=== PATIENT | female | born 1995 | race Caucasian/White ===

== ENCOUNTER → 2022-05-05 | Outpatient (REF) | LOC: M LABSMTC 12:18 | PROVIDERS: ATTEND Family Medicine | DX: Z11.52 Encounter for screening for COVID-19 (principal) ==

== ENCOUNTER → 2022-09-10 | Outpatient (REF) | LOC: M EMP 09:16 | PROVIDERS: ATTEND Family Medicine | DX: Z11.52 Encounter for screening for COVID-19 (principal) ==

== ENCOUNTER → 2022-09-20 | Outpatient (CLI) | payer OTHER | LOC: M WHC 13:29 | PROVIDERS: ATTEND Registered Nurse | DX: Z34.90 Encounter for supervision of normal pregnancy, unspecified, unspecified trimester (principal) ==

== ENCOUNTER 2023-01-24 09:37 | Inpatient (IN) | payer OTHER ==
[2023-01-24] VITALS (18 sets, daily range): BP systolic 113–170; BP diastolic 65–97
[~2023-01-24] VITALS: Ht 157.5 cm; Wt 66.3 kg
[2023-01-24] MEDS ORDERED: OXYTOCIN INJ 10UNITS/ML 1ML VIAL IM PRN (10:35)
[2023-01-24] MEDS ORDERED: METHYLERGONOVINE MALEATE 0.2MG/ML 1ML VIAL IM PRN (10:35)
[2023-01-24] MEDS ORDERED: LIDOCAINE 1% MDV 20ML VIAL INFIL PRN (10:35)
[2023-01-24] MEDS ORDERED: OXYTOCIN DRIP 30 UNITS in IV 1 EA IV PRN ×6 (10:35)
[2023-01-24] MEDS ORDERED: CARBOPROST TROMETHAMINE 250 MCG/ML AMP IM PRN (10:35)
[2023-01-24] MEDS ORDERED: TRANEXAMIC ACID INJection 1,000 MG in NS 100 ML IV PRN (10:35)
[2023-01-24] MEDS ORDERED: LACTATED RINGER'S 1000 ML IV STA (10:35)
[2023-01-24] MEDS ORDERED: LR 1,000 ML IV SCH ×2 (10:35→22:05)
[2023-01-24] MEDS ORDERED: PRENTAB9 PO (11:16)
[2023-01-24 11:19] LABS: BASO # 0.1 10^3/uL (0.0-0.2); BASO % 0.5 % (0.0-1.0); EOS # 0.1 10^3/uL (0.0-0.5); HEMATOCRIT 33.6 % (36.0-47.0); LYMPH # 1.5 10^3/uL (1.5-5.0); MEAN CORPUSCULAR HEMOGLOBIN 27.2 pg (27.0-33.0); MEAN CORPUSCULAR HGB CONC 32.7 g/dl (32.0-36.5); MEAN CORPUSCULAR VOLUME 83.2 fl (80.0-96.0); MONO # 0.8 10^3/uL (0.0-0.8); MONO % 6.1 % (2.0-8.0); NEUTROPHILS # 10.9 10^3/uL (1.5-8.5); NEUTROPHILS % 79.9 % (36.0-66.0); PLATELET COUNT, AUTOMATED 157 10^3/uL (150-450); RED BLOOD COUNT 4.04 10^6/uL (4.00-5.40); WHITE BLOOD COUNT 13.7 10^3/uL (4.0-10.0)
[2023-01-24] MEDS ORDERED: OXYTOCIN DRIP 30 UNITS in IV 1 EA IV SCH (22:05)
[2023-01-24] MEDS ORDERED: ONDANSETRON 4MG 2ML VIAL IV PRN (23:35)
[2023-01-24] MEDS ORDERED: LR 500 ML IV PRN (23:35)
[2023-01-24] MEDS ORDERED: FENTANYL/ROPIVACAINE/NACL BAG 100 ML EPIDURAL SCH (23:35)
[2023-01-24] MEDS ORDERED: NALOXONE INJ 0.4MG/1ML VIAL IV PRN (23:35)
[2023-01-24] MEDS ORDERED: diphenhydrAMINE 50MG/ML VIAL IV PRN (23:35)
[2023-01-24] MEDS ORDERED: EPIDURAL/PCA KEYS XX PRN (23:35)
[2023-01-25] VITALS (29 sets, daily range): BP systolic 92–134; BP diastolic 53–91; O2SAT 97–99
[2023-01-25] MEDS: ePHEDrine SULFATE 25 MG/5 ML(5MG/ML) SYRINGE IVP PRN ×3 (01:41→01:47)
[2023-01-25] MEDS ORDERED: RHOGAM 300MCG (1500IU) INJ IM SCH (03:40)
[2023-01-25] MEDS ORDERED: DIBUCAINE 1% OINTMENT 30GM TOP PRN (03:40)
[2023-01-25] MEDS ORDERED: IBUPROFEN 600MG TAB PO PRN (03:40)
[2023-01-25] MEDS ORDERED: DOCUSATE SODIUM 100MG CAPSULE PO PRN (03:40)
[2023-01-25] MEDS ORDERED: ACETAMINOPHEN TAB 650MG DOSE (2X325MG) PO PRN (03:40)
[2023-01-25] MEDS ORDERED: METHYLERGONOVINE MALEATE 0.2 MG TAB PO PRN (03:40)
[2023-01-25] MEDS: ACETAMINOPHEN 500 MG TAB PO PRN ×2 (04:47→11:26)
[2023-01-25] MEDS: IBUPROFEN 800 MG TAB PO PRN ×3 (04:47→15:36)
[2023-01-25] MEDS: PRENATAL VITAMINS CHEWABLE TABLET PO SCH (08:20)
[2023-01-26 06:00] VITALS: BP 121/72; O2SAT 99
[2023-01-26 07:53] LABS: HEMATOCRIT 32.1 % (36.0-47.0); HEMOGLOBIN 10.1 g/dl (12.0-15.5); MEAN CORPUSCULAR HEMOGLOBIN 26.7 pg (27.0-33.0); MEAN CORPUSCULAR HGB CONC 31.5 g/dl (32.0-36.5); MEAN CORPUSCULAR VOLUME 84.9 fl (80.0-96.0); PLATELET COUNT, AUTOMATED 143 10^3/uL (150-450); RED BLOOD COUNT 3.78 10^6/uL (4.00-5.40)
[2023-01-26] MEDS: PRENATAL VITAMINS CHEWABLE TABLET PO SCH (09:09)
[2023-01-26] MEDS ORDERED: IBUP-1022 PO (10:04)
[2023-01-26] MEDS ORDERED: ACET1TAB55 PO (10:04)
[2023-01-26] MEDS ORDERED: COLA100C5 PO (10:04)
[2023-01-26] MEDS: ACETAMINOPHEN 500 MG TAB PO PRN (10:17)
[2023-01-27] MEDS ORDERED: MEASLES,MUMPS,RUBELLA VACCINE INJ (MMR-II) SC.IMMUN ONE (09:00)
== END 2023-01-26 11:39 | disposition home or self-care (01) | DRG 807 ==
LOC: M LDO 09:37 → M LDI 10:53 → M OBS 01-25 05:32
PROVIDERS: ADMIT Obstetrics & Gynecology; ATTEND Obstetrics & Gynecology
PROC: 10E0XZZ Delivery of Products of Conception, External Approach (ICD-10-PCS; principal; 2023-01-25)
PROC: 0HQ9XZZ Repair Perineum Skin, External Approach (ICD-10-PCS; 2023-01-25)
DX: O42.02 Full-term premature rupture of membranes, onset of labor within 24 hours of rupture (principal); Z37.0 Single live birth; Z3A.39 39 weeks gestation of pregnancy; O70.0 First degree perineal laceration during delivery